=== PATIENT | female | born 2000 | race Caucasian/White ===

== ENCOUNTER 2019-03-12 17:56 | Emergency (ER) | payer SELFPAY ==
--- NOTE | 2019-03-12 18:26 | EDM.PDOC ---
ED HPI GENERAL MEDICAL PROBLEM - General Chief Complaint: Abdominal Pain Stated Complaint: PAIN ON RIGHT SIDE OF STOMACH Time Seen by Provider: 03/12/19 18:14 Source of Information: Reports: Patient History Limitations: Reports: No Limitations - History of Present Illness INITIAL COMMENTS - FREE TEXT/NARRATIVE: HISTORY AND PHYSICAL: History of present illness: Patient is a 18-year-old female presents to the ED today with concern of right lower pelvic pain over the last 2 days. Patient states she has had some nausea associated with the abdominal pain. Patient states she has not vomited and denies any abdominal surgeries. Patient states she is irregular on her menstrual cycles and the pain on the right side is similar to past pain she had with her menstrual cycles. Patient states she does have a history of migraine disorder but denies any other health history. Patient denies fever, chills, chest pain, shortness of breath, or cough. Denies headache, neck stiff ness, change in vision, syncope, or near syncope. Denies vomiting, diarrhea, constipation, or dysuria. Has not noted any blood in urine or stool. Patient has been eating and drinking appropriately. Review of systems: As per history of present illness and below otherwise all systems reviewed and negative. Past medical history: As per history of present illness and as reviewed below otherwise noncontributory. Surgical history: As per history of present illness and as reviewed below otherwise noncontributory. Social history: See social history for further information Family history: As per history of present illness and as reviewed below otherwise noncontributory. Physical exam: General: Patient is alert, oriented, and in no acute distress. Patient sitting comfortably on exam table. HEENT: Atraumatic, normocephalic, pupils equal and reactive bilaterally, negative for conjunctival pallor or scleral icterus, mucous membranes moist, TMs normal bilaterally, throat clear, neck supple, nontender, trachea midline. No drooling or trismus noted. No meningeal signs. No hot potato voice noted. Lungs: Clear to auscultation, breath sounds equal bilaterally, chest nontender. Heart: S1S2, regular rate and rhythm without overt murmur Abdomen: Soft, nondistended, mild suprapubic tenderness. Negative for masses or hepatosplenomegaly. Negative for costovertebral tenderness. Pelvis: Stable nontender. Genitourinary: Deferred. Rectal: Deferred. Skin: Intact, warm, dry. No lesions or rashes noted. Extremities: Atraumatic, negative for cords or calf pain. Neurovascular unremarkable. Neuro: Awake, alert, oriented. Cranial nerves II through XII unremarkable. Cerebellum unremarkable. Motor and sensory unremarkable throughout. Exam nonfocal. Notes: Discussed the importance for follow-up with a primary care provider and [employer] provider. Voices understanding and is agreeable to plan of care. Denies any further questions or concerns at this time. Diagnostics: CBC, CMP, Lipase, UA, serum hcg, TVUS Therapeutics: None Prescription: None Impression: Suprapubic tenderness Plan: 1. You can alternate ibuprofen and Tylenol as directed for pain and discomfort. 2. Follow-up with you primary care provider and [employer] women's health provider as discussed. Return to the ED as needed and as discussed. Definitive disposition and diagnosis as appropriate pending reevaluation and review of above. Right Lower Abdomen Pain Score (Numeric/FACES): 8 - Related Data Allergies Allergy/AdvReac Type Severity Reaction Status Date / Time No Known Allergies Allergy Verified 03/12/19 18:10 Home Meds: Home Meds . [No Known Home Meds] 03/12/19 [History] Past Medical History Neurological History: Reports: Migraines Social & Family History - Family History Family Medical History: Noncontributory - Tobacco Use Smoking Status *Q: Never Smoker Second Hand Smoke Exposure: No - Caffeine Use Caffeine Use: Reports: Coffee, Energy Drinks, Soda - Recreational Drug Use Recreational Drug Use: No ED ROS GENERAL - Review of Systems Review Of Systems: Comprehensive ROS is negative, except as noted in HPI. ED EXAM, GENERAL - Physical Exam Exam: See Below (see dictation) Course - Vital Signs Last Recorded V/S: Last Vital Signs Temp 97.8 F 03/12/19 18:11 Pulse 88 03/12/19 20:03 Resp 16 03/12/19 20:03 BP 124/75 03/12/19 20:03 Pulse Ox 97 03/12/19 20:03 - Orders/Labs/Meds Labs: Laboratory Tests 03/12/19 03/12/19 03/12/19 Range/Units 18:24 18:35 18:35 WBC 10.30 (4.0-11.0) K/uL RBC 5.27 (4.30-5.90) M/uL Hgb 15.2 (12.0-16.0) g/dL Hct 46.1 H (36.0-46.0) % MCV 87.5 (80.0-98.0) fL MCH 28.8 (27.0-32.0) pg MCHC 33.0 (31.0-37.0) g/dL RDW Std Deviation 43.3 (28.0-62.0) fl RDW Coeff of Nava 14 (11.0-15.0) % Plt Count 391 (150-400) K/uL MPV 10.90 (7.40-12.00) fL Neut % (Auto) 53.6 (48.0-80.0) % Lymph % (Auto) 33.0 (16.0-40.0) % Kay % (Auto) 6.4 (0.0-15.0) % Eos % (Auto) 6.6 (0.0-7.0) % Baso % (Auto) 0.4 (0.0-1.5) % Neut # (Auto) 5.5 (1.4-5.7) K/uL Lymph # (Auto) 3.4 H (0.6-2.4) K/uL Kay # (Auto) 0.7 (0.0-0.8) K/uL Eos # (Auto) 0.7 (0.0-0.7) K/uL Baso # (Auto) 0.0 (0.0-0.1) K/uL Nucleated RBC % 0.0 /100WBC Nucleated RBCs # 0 K/uL Sodium 145 (136-145) mmol/L Potassium 4.0 (3.5-5.1) mmol/L Chloride 108 H (98-107) mmol/L Carbon Dioxide 26.5 (21.0-32.0) mmol/L BUN 13 (7.0-18.0) mg/dL Creatinine 0.9 (0.6-1.0) mg/dL Est Cr Clr Drug Dosing 94.12 mL/min Estimated GFR (MDRD) > 60.0 ml/min Glucose 84 (74-106) mg/dL Calcium 9.3 (8.5-10.1) mg/dL Total Bilirubin 0.4 (0.2-1.0) mg/dL AST 18 (15-37) IU/L ALT 43 (14-63) IU/L Alkaline Phosphatase 83 (46-116) U/L Total Protein 8.3 H (6.4-8.2) g/dL Albumin 4.1 (3.4-5.0) g/dL Globulin 4.2 H (2.6-4.0) g/dL Albumin/Globulin Ratio 1.0 (0.9-1.6) Lipase 126 (73-393) U/L HCG, Qual (NEG) Urine Color YELLOW Urine Appearance CLEAR Urine pH 5.5 (5.0-8.0) Ur Specific [place] >= 1.030 (1.001-1.035) Urine Protein NEGATIVE (NEGATIVE) mg/dL Urine Glucose (UA) NEGATIVE (NEGATIVE) mg/dL Urine Ketones TRACE H (NEGATIVE) mg/dL Urine Occult Blood NEGATIVE (NEGATIVE) Urine Nitrite NEGATIVE (NEGATIVE) Urine Bilirubin NEGATIVE (NEGATIVE) Urine Urobilinogen 0.2 (<2.0) EU/dL Ur Leukocyte Esterase NEGATIVE (NEGATIVE) 03/12/19 Range/Units 18:35 WBC (4.0-11.0) K/uL RBC (4.30-5.90) M/uL Hgb (12.0-16.0) g/dL Hct (36.0-46.0) % MCV (80.0-98.0) fL MCH (27.0-32.0) pg MCHC (31.0-37.0) g/dL RDW Std Deviation (28.0-62.0) fl RDW Coeff of Nava (11.0-15.0) % Plt Count (150-400) K/uL MPV (7.40-12.00) fL Neut % (Auto) (48.0-80.0) % Lymph % (Auto) (16.0-40.0) % Kay % (Auto) (0.0-15.0) % Eos % (Auto) (0.0-7.0) % Baso % (Auto) (0.0-1.5) % Neut # (Auto) (1.4-5.7) K/uL Lymph # (Auto) (0.6-2.4) K/uL Kay # (Auto) (0.0-0.8) K/uL Eos # (Auto) (0.0-0.7) K/uL Baso # (Auto) (0.0-0.1) K/uL Nucleated RBC % /100WBC Nucleated RBCs # K/uL Sodium (136-145) mmol/L Potassium (3.5-5.1) mmol/L Chloride (98-107) mmol/L Carbon Dioxide (21.0-32.0) mmol/L BUN (7.0-18.0) mg/dL Creatinine (0.6-1.0) mg/dL Est Cr Clr Drug Dosing mL/min Estimated GFR (MDRD) ml/min Glucose (74-106) mg/dL Calcium (8.5-10.1) mg/dL Total Bilirubin (0.2-1.0) mg/dL AST (15-37) IU/L ALT (14-63) IU/L Alkaline Phosphatase (46-116) U/L Total Protein (6.4-8.2) g/dL Albumin (3.4-5.0) g/dL Globulin (2.6-4.0) g/dL Albumin/Globulin Ratio (0.9-1.6) Lipase (73-393) U/L HCG, Qual NEGATIVE (NEG) Urine Color Urine Appearance Urine pH (5.0-8.0) Ur Specific [place] (1.001-1.035) Urine Protein (NEGATIVE) mg/dL Urine Glucose (UA) (NEGATIVE) mg/dL Urine Ketones (NEGATIVE) mg/dL Urine Occult Blood (NEGATIVE) Urine Nitrite (NEGATIVE) Urine Bilirubin (NEGATIVE) Urine Urobilinogen (<2.0) EU/dL Ur Leukocyte Esterase (NEGATIVE) Departure - Departure Time of Disposition: 20:07 Disposition: Home, Self-Care 01 Clinical Impression: Suprapubic tenderness - Discharge Information Referrals: PCP,None [Primary Care Provider] - Forms: ED Department Discharge Additional Instructions: The following information is given to patients seen in the emergency department who are being discharged to home. This information is to outline your options for follow-up care. We provide all patients seen in our emergency department with a follow-up referral. The need for follow-up, as well as the timing and circumstances, are variable depending upon the specifics of your emergency department visit. If you don't have a primary care physician on staff, we will provide you with a referral. We always advise you to contact your personal physician following an emergency department visit to inform them of the circumstance of the visit and for follow-up with them and/or the need for any referrals to a consulting specialist. The emergency department will also refer you to a specialist when appropriate. This referral assures that you have the opportunity for follow-up care with a specialist. All of these measure are taken in an effort to provide you with optimal care, which includes your follow-up. Under all circumstances we always encourage you to contact your private physician who remains a resource for coordinating your care. When calling for follow-up care, please make the office aware that this follow-up is from your recent emergency room visit. If for any reason you are refused follow-up, please contact the [facility] Emergency Department at and asked to speak to the emergency department charge nurse. [facility] [address] [place] [address] [facility] [address] [place] [address] [facility] [address] [place] [address] 1. You can alternate ibuprofen and Tylenol as directed for pain and discomfort. 2. Follow-up with you primary care provider and [employer] women's health provider as discussed. Return to the ED as needed and as discussed. Sepsis Event Note - Evaluation Sepsis Screening Result: No Definite Risk - Focused Exam Vital Signs: Vital Signs Temp Pulse Resp BP Pulse Ox 03/12/19 20:03 88 16 124/75 97 03/12/19 18:11 97.8 F 104 H 20 133/88 96 Date Exam was Performed: 03/12/19 Time Exam was Performed: 20:07
[2019-03-12 19:00] LABS: BLOOD UREA NITROGEN,BUN 13 mg/dL (7.0-18.0); CARBON DIOXIDE,CO2 26.5 mmol/L (21.0-32.0); CHLORIDE,CL 108 mmol/L (98-107); GLUCOSE RANDOM 84 mg/dL (74-106); LIPASE 126 U/L (73-393); SODIUM,NA 145 mmol/L (136-145)
--- NOTE | 2019-03-12 20:05 | US ---
INDICATION: Right lower quadrant pain. History of amenorrhea. COMPARISON: None available. FINDINGS: Transvaginal ultrasound examination of the female pelvis was performed. The uterus is anteverted with no evidence of mass. It is quite short, measuring 4.5 centimeters in length and 2.5 x 3.4 centimeters in cross-section. The endometrial lining is normal in thickness at 6 millimeters. The ovaries have multiple small cysts arranged along the periphery of the ovary, suggesting polycystic ovary syndrome. The ovaries are otherwise normal in appearance. The ovaries are normal in size, the right measuring 2.8 x 2.5 x 1.8 cm and the left measuring 3.0 x 2.0 x 2.8 cm. There is normal color and pulse doppler flow in the right ovary. Flow is more difficult to assess in the left ovary, but there is normal arterial flow on pulse Doppler examination. There is no sign of free fluid in the pelvis. IMPRESSION: Short uterus, measuring only 4.5 centimeters in length. Multiple small peripheral follicular cysts in both ovaries, suggesting polycystic ovary syndrome. Dictated by Pawan Troncoso MD @ Mar 12 2019 8:00PM Signed by Dr. Pawan Troncoso @ Mar 12 2019 8:04PM
== END 2019-03-12 20:20 | disposition home or self-care (01) ==
LOC: MW.ED 17:56
DX: R10.813 Right lower quadrant abdominal tenderness (principal)
CPT/HCPCS: 36415; 76830; 76830-26; 80053; 81003; 83690; 84703; 85025; 99282; 99284-25